=== PATIENT | male | born 1930 | race Caucasian/White ===

== ENCOUNTER 2017-11-01 12:22 | Inpatient (IN) ==
[2017-11-01] MEDS ORDERED: Aspirin 325 MG Tablet PO ONE (12:56)
--- NOTE | 2017-11-01 13:17 | ED ---
HPI General Chief complaint: Medical Clearance Stated complaint: Cardic/Pysch Eval Time Seen by Provider: 11/01/17 12:39 Source: patient, EMS and police Mode of arrival: other (police) Limitations: no limitations History of Present Illness HPI narrative: 87-year-old male the presents to the ED for evaluation of Shine act. Patient was Shine acted by police secondary to making statements to his about having "bad thoughts ". Apparently patient developed some chest pain and shortness of breath today. He told his that he was having "bad thoughts" and somehow police were involved. Patient does have a history of apparently overdosed. Per patient himself he took about 120 Xanax 6 weeks ago and was admitted to a different hospital in [facility]. He states that he was released recently and per patient he was given Xanax for his anxiety during the hospitalization but he was not released with any prescriptions for this. Per patient he believes that this is related to his symptoms. Per patient he feels pressure on his chest and short of breath. Per patient he feels somewhat similar to his panic attacks but he is not 100% sure that this is related. He states that he has no other medical problems that he takes no medications for diabetes or cholesterol. He does state that he has a history of depression. Per patient he follows with a psychiatrist. He has never been at this hospital before. He denies any cardiac history. States that his pressure is 6 out of 10. Related Data Home Medications Medication Instructions Recorded Confirmed Unable to Obtain Home Meds 11/01/17 11/01/17 Allergies Allergy/AdvReac Type Severity Reaction Status Date / Time No Allergy Information Allergy Verified 11/01/17 12:56 Available Review of Systems ROS Unobtainable All other systems reviewed negative except as stated in HPI PMFSH History History Provided By: Patient and Law Enforcement Medical History Medical History Anxiety (Acute) Depression (Acute) Suicidal ideation (Acute) Social History Social History Substance History: No History of Abuse Second Hand Smoke Exposure: No Smoking Status: Never smoker How Often Do You Have a Drink Containing Alcohol: Never Recent Travel in [place] within the Last 8 Weeks: No Recent Out of Country Travel within the Last 8 Weeks: No Exam Narrative Exam Narrative: GENERAL: Well-appearing SKIN: Focused skin assessment warm/dry. HEAD: Atraumatic. Normocephalic. EYES: Pupils equal and round. No scleral icterus. No injection or drainage. ENT: No nasal bleeding or discharge. Mucous membranes pink and moist. Tongue is midline. No uvula deviation. NECK: Trachea midline. No JVD. CARDIOVASCULAR: Regular rate and rhythm. No murmur appreciated. RESPIRATORY: No accessory muscle use. Clear to auscultation. Breath sounds equal bilaterally. GASTROINTESTINAL: Abdomen soft, non-tender, nondistended. Hepatic and splenic margins not palpable. MUSCULOSKELETAL: No obvious deformities. No clubbing. No cyanosis. No edema. Full range of motion of the upper and lower extremities bilaterally. 2+ pulses bilaterally. NEUROLOGICAL: Awake and alert. No obvious cranial nerve deficits. Motor grossly within normal limits. Normal speech. PSYCHIATRIC: Appropriate mood and affect; insight and judgment normal. Course Initial Documented Vital Signs Pulse Rate 75 11/01/17 12:40 Respiratory Rate 20 11/01/17 12:40 Blood Pressure 156/88 H 11/01/17 12:40 Pulse Oximetry 97 11/01/17 12:40 Last Documented Vital Signs Pulse Rate 77 11/01/17 17:57 Respiratory Rate 20 11/01/17 17:57 Blood Pressure 134/77 11/01/17 17:57 Pulse Oximetry 95 11/01/17 17:57 Medical Decision Making MATT Attestation MATT supervised visit: Yes Attestation: I, Dr. Bliss, have reviewed the advance practice practitioner's documentation and am in agreement, met with the patient face to face, made the diagnosis, and the medical decision making was done by me. *My assessment and Findings: Patient seen and evaluated with PA, please see PA notes for further details. Coming in with chest discomfort, has been Shine acted for psychiatric issues, fairly anxious and upset, apparently had been on benzodiazepines in the past and did not get prescription for them. At this point, patient was given some benzodiazepines as well. Initial EKG did not show any signs of acute dysrhythmias or ST changes. Lab work was fairly unremarkable otherwise. Planning to medically clear for further evaluation. [facility] Narrative Medical decision making narrative: 87-year-old male the presents to the ED for evaluation of Shine act and chest pain. Patient was properly examined and was found to have signs and symptoms of unclear etiology but likely psychiatric in nature. Cannot rule out ACS secondary to his age. Labs and imaging were ordered. Patient given aspirin and Xanax. Labs and imaging showed no sign of acute disease. Xanax did seem to help the patients symptoms. My attending Dr Reyes evaluated the patient herself. She agrees with delta troponin and if negative, patient to be medically cleared for psych eval. Differential Diagnosis Differential Diagnosis: Chest pain versus typical chest pain versus ACS versus anxiety attack versus depression versus suicidal ideation Lab Data Lab results reviewed: Yes I reviewed the patient's lab results. Lab results narrative: [facility]ags WNL troponin and [facility] WNL drug screen negative second troponin negative Result diagrams: 11/01/17 13:20 11/01/17 13:20 Lab Results 11/01/17 11/01/17 11/01/17 Range/Units 13:20 13:20 13:20 WBC 8.2 (4.0-11.0) th/mm3 RBC 4.06 L (4.50-5.90) mil/mm3 Hgb 12.8 L (13.0-17.0) gm/dL Hct 37.3 L (39.0-51.0) % MCV 92.0 (80.0-100.0) fL MCH 31.7 (27.0-34.0) pg MCHC 34.4 (32.0-36.0) % RDW 14.1 (11.6-17.2) % Plt Count 223 (150-450) th/mm3 MPV 7.8 (7.0-11.0) fL Neut % (Auto) 75.4 H (16.0-70.0) % Lymph % (Auto) 17.1 (9.0-44.0) % Garza % (Auto) 6.9 (0.0-8.0) % Eos % (Auto) 0.3 (0.0-4.0) % Baso % (Auto) 0.3 (0.0-2.0) % Neut # (Auto) 6.2 (1.8-7.7) th/mm3 Lymph # (Auto) 1.4 (1.0-4.8) th/mm3 [place] # (Auto) 0.6 (0.0-0.9) th/mm3 Eos # (Auto) 0.0 (0.0-0.4) th/mm3 Baso # (Auto) 0.0 (0.0-0.2) th/mm3 WBC Differential . Differential Comment Auto diff final PT 10.2 (9.8-11.6) sec INR 1.0 Ratio APTT 25.8 (24.3-30.1) sec Sodium 140 (136-145) meq/L Potassium 4.0 (3.5-5.1) meq/L Chloride 105 (98-107) meq/L Carbon Dioxide 27.1 (21.0-32.0) meq/L Anion Gap 8 (5-15) meq/L BUN 19 H (7-18) mg/dL Creatinine 0.85 (0.60-1.30) mg/dL Estimated GFR 85 L (>89) mL/min Random Glucose 103 (74-106) mg/dL Calcium 8.7 (8.5-10.1) mg/dL Total Bilirubin 0.5 (0.2-1.0) mg/dL AST 20 (15-37) U/L ALT 39 (12-78) U/L Alkaline Phosphatase 89 (45-117) U/L Total Creatine Kinase 55 (39-308) U/L Troponin I Less than 0.02 L (0.02-0.05) ng/mL Total Protein 7.4 (6.4-8.2) g/dL Albumin 3.4 (3.4-5.0) g/dL Urine Opiates Screen (Neg) Ur Barbiturates Screen (Neg) Ur Amphetamines Screen (Neg) U Benzodiazepines Scrn (Neg) Urine Cocaine Screen (Neg) U Cannabinoids Screen (Neg) Serum Alcohol (0-5) mg/dL 11/01/17 11/01/17 11/01/17 Range/Units 14:20 17:20 17:20 WBC (4.0-11.0) th/mm3 RBC (4.50-5.90) mil/mm3 Hgb (13.0-17.0) gm/dL Hct (39.0-51.0) % MCV (80.0-100.0) fL MCH (27.0-34.0) pg MCHC (32.0-36.0) % RDW (11.6-17.2) % Plt Count (150-450) th/mm3 MPV (7.0-11.0) fL Neut % (Auto) (16.0-70.0) % Lymph % (Auto) (9.0-44.0) % Garza % (Auto) (0.0-8.0) % Eos % (Auto) (0.0-4.0) % Baso % (Auto) (0.0-2.0) % Neut # (Auto) (1.8-7.7) th/mm3 Lymph # (Auto) (1.0-4.8) th/mm3 [place] # (Auto) (0.0-0.9) th/mm3 Eos # (Auto) (0.0-0.4) th/mm3 Baso # (Auto) (0.0-0.2) th/mm3 WBC Differential Differential Comment PT (9.8-11.6) sec INR Ratio APTT (24.3-30.1) sec Sodium (136-145) meq/L Potassium (3.5-5.1) meq/L Chloride (98-107) meq/L Carbon Dioxide (21.0-32.0) meq/L Anion Gap (5-15) meq/L BUN (7-18) mg/dL Creatinine (0.60-1.30) mg/dL Estimated GFR (>89) mL/min Random Glucose (74-106) mg/dL Calcium (8.5-10.1) mg/dL Total Bilirubin (0.2-1.0) mg/dL AST (15-37) U/L ALT (12-78) U/L Alkaline Phosphatase (45-117) U/L Total Creatine Kinase Cancelled 47 (39-308) U/L Troponin I Cancelled Less than 0.02 L (0.02-0.05) ng/mL Total Protein (6.4-8.2) g/dL Albumin (3.4-5.0) g/dL Urine Opiates Screen Neg (Neg) Ur Barbiturates Screen Neg (Neg) Ur Amphetamines Screen Neg (Neg) U Benzodiazepines Scrn Neg (Neg) Urine Cocaine Screen Neg (Neg) U Cannabinoids Screen Neg (Neg) Serum Alcohol Less than 3 (0-5) mg/dL Imaging Data Attestation: I personally reviewed and interpreted this imaging study as follows : Radiologist's impression: Chest X-Ray 11/01/17 12:56 CONCLUSION: Negative examination. Discharge Plan Discharge Disposition Patient Disposition: 30 Still Patient Discharge Details Diagnosis: Depression with suicidal ideation, Anxiety, Atypical chest pain Physicians Team ED Provider: Yvonne Bliss ED Midlevel Provider: Zacarias Hatfield Primary Care Provider: Sergio Spring Rxs /Orders / Referrals /Forms Prescriptions: No Action Unable to Obtain Home Meds RF: 0 Status ED Status: Medically Cleared
[2017-11-01 13:30] LABS: Baso % (Auto) 0.3 % (0.0-2.0); Eos % (Auto) 0.3 % (0.0-4.0); Hematocrit 37.3 % (39.0-51.0); Hemoglobin 12.8 gm/dL (13.0-17.0); Lymph # (Auto) 1.4 th/mm3 (1.0-4.8); Lymph % (Auto) 17.1 % (9.0-44.0); Mean Corpuscular HGB Conc 34.4 % (32.0-36.0); Mean Corpuscular Hemoglobin 31.7 pg (27.0-34.0); Mean Platelet Volume 7.8 fL (7.0-11.0); Mono # (Auto) 0.6 th/mm3 (0.0-0.9); Mono % (Auto) 6.9 % (0.0-8.0); Neut # (Auto) 6.2 th/mm3 (1.8-7.7); Neut % (Auto) 75.4 % (16.0-70.0); Platelet Count 223 th/mm3 (150-450); Red Blood Count 4.06 mil/mm3 (4.50-5.90); Red Cell Distribution Width 14.1 % (11.6-17.2); White Blood Count 8.2 th/mm3 (4.0-11.0)
--- NOTE | 2017-11-01 13:30 | XR ---
EXAM DATE: 11/01/2017 1:15 PM EDT AGE/SEX: 87 years / Male INDICATIONS: Chest tightness. Shortness of breath. CLINICAL DATA: This is the patient's initial encounter. Patient reports that signs and symptoms have been present for 1 day and indicates a pain score of 0/10. MEDICAL/SURGICAL HISTORY: None. None. COMPARISON: None. FINDINGS: 2 portable frontal views of the chest demonstrate the lungs to be symmetrically aerated without evide nce of mass, infiltrate or effusion. The cardiomediastinal contours are unremarkable. Osseous struc tures are intact. CONCLUSION: Negative examination. Electronically signed by: Harish Rosa MD 11/01/2017 1:29 PM EDT
[2017-11-01 13:53] LABS: Activated Partial Thrombo Time 25.8 sec (24.3-30.1); Prothrombin Time 10.2 sec (9.8-11.6)
[2017-11-01 14:02] LABS: Anion Gap 8 meq/L (5-15); Aspartate Aminotransferase 20 U/L (15-37); Blood Urea Nitrogen 19 mg/dL (7-18); Calcium 8.7 mg/dL (8.5-10.1); Carbon Dioxide 27.1 meq/L (21.0-32.0); Chloride 105 meq/L (98-107); Glomerular Filtration Rate 85 mL/min (>89); Glucose,Random 103 mg/dL (74-106); Sodium 140 meq/L (136-145)
[2017-11-01 14:03] LABS: Alanine Aminotransferase 39 U/L (12-78); Albumin 3.4 g/dL (3.4-5.0); Alkaline Phosphatase 89 U/L (45-117); Creatine Kinase 55 U/L (39-308); Total Protein 7.4 g/dL (6.4-8.2)
[2017-11-01 14:49] LABS: Amphetamine Screen,Urine Neg (Neg); Barbiturate Screen,Urine Neg (Neg); Cannabinoid Screen,Urine Neg (Neg); Cocaine Screen,Urine Neg (Neg)
[2017-11-01 14:50] LABS: Opiate Screen,Urine Neg (Neg)
--- NOTE | 2017-11-01 18:07 | ECG ---
Date Performed: 11/01/2017 Time Performed: 12:36:31 PTAGE: 87 years EKG: Sinus rhythm BORDERLINE LEFT AXIS DEVIATION RIGHT BUNDLE BRANCH BLOCK ABNORMAL ECG NO PREVIOUS TRACING DOCTOR: Abdi De La Cruz Interpretating Date/Time 11/01/2017 18:05:42
[2017-11-01 18:28] LABS: Creatine Kinase 47 U/L (39-308)
[2017-11-02] MEDS ORDERED: LORazepam 0.5 MG Tablet PO ONE (04:17)
[2017-11-02] MEDS ORDERED: Aluminum/Magnesium/Simethacone Susp 30 ML UDC PO PRN (13:33)
--- NOTE | 2017-11-02 14:57 | ED ---
HPI - Psych - General Source: patient, EMS, police Mode of arrival: other (police) Limitations: no limitations - History of Present Illness MD complaint: suicidal ideation, feels depressed Onset (ago): year(s) Duration: changing over time, getting worse History of same: Yes Relieving factors: medication Exacerbating factors: other (not having medication) Context: not taking psychiatric medications, new medication(s) Associated psychiatric symptoms: other (panic attacks) Associated symptoms: shortness of breath, nausea, other (see HPI) Treatments prior to arrival: none - General Chief Complaint: Medical Clearance Stated Complaint: Cardic/Pysch Eval Time Seen by Provider: 11/01/17 12:25 - History of Present Illness HPI Narrative: This is an 87 year-old, male who presents under a Shine Act placed by the [facility]. They were called by the patient's who advised that he has been making suicidal statements and has a recent suicide attempt by OD of xanax. This patient is previously unknown to this facility. Reviewed electronic medical record, labs, and discussed case with staff. The patient was evaluated in his room in the main ED with Yandy Chakraborty NP present. He is found awake, alert, and oriented. His speech is clear, logical, and organized. He denies suicidal and homicidal ideation as well as auditory and visual hallucinations. I can elicit no delusional material. There is no indication of internal stimulation nor thought blocking. He is neatly groomed, clad in a hospital gown, and interacts appropriately throughout the evaluation. His mood is good and his affect is euthymic. When asked why he is here, the patient responds, "these panic attacks just put me down, and they have gotten progressively worse over the years". He reports that he was treated with Xanax 0.25 mg from his PCP for years, denies having seen a psychiatrist. He moved to [place] with his at the beginning of the year. He advises that approximately six weeks ago, he took an entire bottle of Xanax and ended up on an inpatient psychiatry unit at [facility] in [place]. He was there for approximately five weeks. He was given Ativan while inpatient but was discharged without any Ativan. His reports that he received 13 ECT while at the facility and is scheduled for a 14th one this Tuesday. However, when the patient was asked, he denied any symptoms of depression previous to the admission. His and he both report that he wakes up each morning between 2 and 4 am with the following symptoms: body closing in , nausea, dizzy, hard to breathe, hot and cold sensation, sweating, and numb legs. He denies any previous suicide attempts other than the OD and the patient reports that he "can't remember why I took them". He has stated to his several times since arriving home that he wants to , but only during the time the symptoms are present. They live alone but have four adult children in the area. He walks with a walker. He denies previous psychiatric inpatient or outpatient treatment. He reports that he finished the 8th grade and worked doing auto body repair. He has been to his for 51 years. He denies smoking (quit 41 years ago), drinking alcohol, and using illicit drugs. His states that he has always been one to take less medications than to overuse them. She has since secured his medications in a locked cabinet out of an overabundance of caution. He was discharged on Celexa, Mirtazapine, and Olanzapine. He reports that last night the ER doctor prescribed him 0.5 mg po Ativan which alleviated "my symptoms by about 80%". (Violeta Borrero) - Related Data Home Medications Medication Instructions Recorded Confirmed Celexa 10 mg PO DAILY 11/02/17 11/02/17 mirtazapine [Remeron] 15 mg PO HS 11/02/17 11/02/17 olanzapine 2.5 mg PO HS 11/02/17 11/02/17 Allergies Allergy/AdvReac Type Severity Reaction Status Date / Time No Allergy Information Allergy Verified 11/01/17 12:56 Available Review of Systems All other systems reviewed negative except as stated in HPI PMF - History History Provided By: Patient, Law Enforcement - Medical History Medical History: Medical History (Last Reviewed 11/02/17 @ 14:50 by JACINDA Caicedo) Anxiety Depression Suicidal ideation - Tobacco History Second Hand Smoke Exposure: No Tobacco Use In Past 30 Days: No Smoking Status: Never smoker - Alcohol History How Often Do You Have a Drink Containing Alcohol: Never - Substance Use History Substance History: No History of Abuse - Travel History Recent Travel in the [facility] Within the Last 8 Weeks: No Recent Travel Out of the Country Within the Last 8 Weeks: No - Immunization History Tetanus Immunization: Unsure Psychiatric History - Psychiatric History Psychiatric Treatment History: History of Psychiatric Treatment, History of Electroconvulsive Therapy, History of Hospitalization in a Psychiatric Facility , Denies Previous Treatment History of Inpatient Treatment: Yes Firearms in Home: No - Psychiatric History Recent five week admission, placed on several low dose antidepressants and given 13 ECTs. Prior to that only history was Xanax from his PCP. (Violeta Borrero ) - Legal History Denies (Violeta Borrero) - Family Psychiatric History Denies (Violeta Borrero) Physical Exam - General Limitations: no limitations General appearance: alert, in no apparent distress - Head Head exam: atraumatic - Expanded Neurological Exam Eye Opening: Spontaneous Verbal Response: Oriented Motor Response: Obey commands Glascow Coma Scale Total: 15 - Psychiatric Psychiatric exam: Present: normal affect, normal mood Mental Status Examination Appearance: Appropriate, Well dressed/well groomed Consciousness: Alert Orientation: x4 Motor Activity: Other (lying on the bed) Speech: Unremarkable Language: Adequate Fund of Knowledge: Adequate Attention and Concentration: Adequate Memory: Unremarkable Mood: Appropriate, Good Affect: Appropriate, Euthymic Thought Process & Associations: Intact Thought Content: Appropriate Hallucination Type: None Delusion Type: None Suicidal Ideation: No Suicidal Plan: No Suicidal Intention: No Homicidal Ideation: No Homicidal Plan: No Homicidal Intention: No Insight: Adequate Judgment: Adequate Initial Documented Vital Signs Pulse Rate 75 11/01/17 12:40 Respiratory Rate 20 11/01/17 12:40 Blood Pressure 156/88 H 11/01/17 12:40 Pulse Oximetry 97 11/01/17 12:40 Last Documented Vital Signs Pulse Rate 77 11/02/17 08:56 Respiratory Rate 18 11/02/17 08:56 Blood Pressure 143/77 H 11/02/17 08:56 Pulse Oximetry 95 11/02/17 08:56 MDM - Psych - Diagnosis (1) Panic disorder Status: Acute - Differential Diagnosis Likely: suicidal ideation, depression, acute anxiety - Lab Data Result diagrams: 11/01/17 13:20 11/01/17 13:20 - [facility] Narrative Medical decision making narrative: Given his previous suicide attempt by overdose, and his 's report of the patient's level of distress each morning, I am admitting him to a locked inpatient psychiatric unit for further evaluation and treatment as deemed necessary. After consulting with the and Dr Hernandez, I have continued the patient on his medications and added a 0.5 mg HS dose of Ativan. Consents are signed and his will be bringing paperwork from his previous inpatient admission. (Violeta Borrero) - Lab Data Lab Results 11/01/17 11/01/17 11/01/17 Range/Units 13:20 13:20 13:20 WBC 8.2 (4.0-11.0) th/mm3 RBC 4.06 L (4.50-5.90) mil/mm3 Hgb 12.8 L (13.0-17.0) gm/dL Hct 37.3 L (39.0-51.0) % MCV 92.0 (80.0-100.0) fL MCH 31.7 (27.0-34.0) pg MCHC 34.4 (32.0-36.0) % RDW 14.1 (11.6-17.2) % Plt Count 223 (150-450) th/mm3 MPV 7.8 (7.0-11.0) fL Neut % (Auto) 75.4 H (16.0-70.0) % Lymph % (Auto) 17.1 (9.0-44.0) % [place] % (Auto) 6.9 (0.0-8.0) % Eos % (Auto) 0.3 (0.0-4.0) % Baso % (Auto) 0.3 (0.0-2.0) % Neut # (Auto) 6.2 (1.8-7.7) th/mm3 Lymph # (Auto) 1.4 (1.0-4.8) th/mm3 [place] # (Auto) 0.6 (0.0-0.9) th/mm3 Eos # (Auto) 0.0 (0.0-0.4) th/mm3 Baso # (Auto) 0.0 (0.0-0.2) th/mm3 WBC Differential . Differential Comment Auto diff final PT 10.2 (9.8-11.6) sec INR 1.0 Ratio APTT 25.8 (24.3-30.1) sec Sodium 140 (136-145) meq/L Potassium 4.0 (3.5-5.1) meq/L Chloride 105 (98-107) meq/L Carbon Dioxide 27.1 (21.0-32.0) meq/L Anion Gap 8 (5-15) meq/L BUN 19 H (7-18) mg/dL Creatinine 0.85 (0.60-1.30) mg/dL Estimated GFR 85 L (>89) mL/min Random Glucose 103 (74-106) mg/dL Calcium 8.7 (8.5-10.1) mg/dL Total Bilirubin 0.5 (0.2-1.0) mg/dL AST 20 (15-37) U/L ALT 39 (12-78) U/L Alkaline Phosphatase 89 (45-117) U/L Total Creatine Kinase 55 (39-308) U/L Troponin I Less than 0.02 L (0.02-0.05) ng/mL Total Protein 7.4 (6.4-8.2) g/dL Albumin 3.4 (3.4-5.0) g/dL Urine Opiates Screen (Neg) Ur Barbiturates Screen (Neg) Ur Amphetamines Screen (Neg) U Benzodiazepines Scrn (Neg) Urine Cocaine Screen (Neg) U Cannabinoids Screen (Neg) Serum Alcohol (0-5) mg/dL 11/01/17 11/01/17 11/01/17 Range/Units 14:20 17:20 17:20 WBC (4.0-11.0) th/mm3 RBC (4.50-5.90) mil/mm3 Hgb (13.0-17.0) gm/dL Hct (39.0-51.0) % MCV (80.0-100.0) fL MCH (27.0-34.0) pg MCHC (32.0-36.0) % RDW (11.6-17.2) % Plt Count (150-450) th/mm3 MPV (7.0-11.0) fL Neut % (Auto) (16.0-70.0) % Lymph % (Auto) (9.0-44.0) % [place] % (Auto) (0.0-8.0) % Eos % (Auto) (0.0-4.0) % Baso % (Auto) (0.0-2.0) % Neut # (Auto) (1.8-7.7) th/mm3 Lymph # (Auto) (1.0-4.8) th/mm3 [place] # (Auto) (0.0-0.9) th/mm3 Eos # (Auto) (0.0-0.4) th/mm3 Baso # (Auto) (0.0-0.2) th/mm3 WBC Differential Differential Comment PT (9.8-11.6) sec INR Ratio APTT (24.3-30.1) sec Sodium (136-145) meq/L Potassium (3.5-5.1) meq/L Chloride (98-107) meq/L Carbon Dioxide (21.0-32.0) meq/L Anion Gap (5-15) meq/L BUN (7-18) mg/dL Creatinine (0.60-1.30) mg/dL Estimated GFR (>89) mL/min Random Glucose (74-106) mg/dL Calcium (8.5-10.1) mg/dL Total Bilirubin (0.2-1.0) mg/dL AST (15-37) U/L ALT (12-78) U/L Alkaline Phosphatase (45-117) U/L Total Creatine Kinase Cancelled 47 (39-308) U/L Troponin I Cancelled Less than 0.02 L (0.02-0.05) ng/mL Total Protein (6.4-8.2) g/dL Albumin (3.4-5.0) g/dL Urine Opiates Screen Neg (Neg) Ur Barbiturates Screen Neg (Neg) Ur Amphetamines Screen Neg (Neg) U Benzodiazepines Scrn Neg (Neg) Urine Cocaine Screen Neg (Neg) U Cannabinoids Screen Neg (Neg) Serum Alcohol Less than 3 (0-5) mg/dL
[2017-11-02] MEDS ORDERED: Mirtazapine 15 MG Tablet PO SCH (21:00)
[2017-11-02] MEDS ORDERED: LORazepam 0.5 MG Tablet PO SCH (21:00)
[2017-11-02] MEDS ORDERED: OLANZapine 2.5 MG Tablet PO SCH (21:00)
[2017-11-02] MEDS ORDERED: Acetaminophen 325 MG Tablet PO PRN (22:48)
[2017-11-03 00:22] VITALS: RESP 16
[2017-11-03 06:13] VITALS: TEMP 97.7; O2SAT 95
[2017-11-03 07:27] VITALS: BP 145/78; PULSE 86
[2017-11-03 07:43] LABS: Calcium 8.4 mg/dL (8.5-10.1); Carbon Dioxide 27.8 meq/L (21.0-32.0); Potassium 3.7 meq/L (3.5-5.1)
[2017-11-03 08:08] LABS: Chol/HDL Ratio 2.11 Ratio; Thyroid Stimulating Hormone 2.2 uIU/mL (0.358-3.740)
[2017-11-03] MEDS ORDERED: Citalopram 20 MG Tablet PO SCH (09:00)
[2017-11-03 09:34] LABS: Hemoglobin A1c 5.7 % (4.3-6.0)
[2017-11-03] MEDS ORDERED: Bisacodyl 10 MG Supp RECTAL PRN (14:19)
[2017-11-03] MEDS ORDERED: Aluminum/Magnesium/Simethacone Susp 30 ML UDC PO PRN (14:19)
--- NOTE | 2017-11-03 14:26 | P.HPPSY ---
Provisional Diagnosis Admission Date: November 02, 2017 13:49 Thayer I.: Adjustment disorder with depressed mood Competence Certification of Person's Competence To Provide Express and Informed Consent I have personally examined Christofer Alvarado, a person being served at [facility] on, November 03, 2017 1423. Express and informed consent means consent voluntarily given in writing, by a competent person, after sufficient explanation and disclosure of the subject matter involved to enable the person to make a knowing and willful decision without any element of force, fraud, deceit, duress, or other form of constraint or coercion. This person is 18 years of age or older, is not now known to be incompetent to consent to treatment with a guardian advocate, and does not have a health care surrogate or proxy currently making medical treatment decisions. I have found this person to be one of the following: [xxx] Competent to provide express and informed consent, as defined above, for voluntary admission to this facility and is competent to provide express and informed consent for treatment. He/she has the consistent capacity to make well reasoned, willful, and knowing decisions concerning his or her medical or mental health treatment. The person fully and consistently understands the purpose of the admission for examination/placement and is fully capable of personally exercising all rights assured under [place] Incompetent to provide express and informed consent to voluntary admission, and this is incompetent to provide express and informed consent to treatment. The person must be transferred to involuntary status and a petition for a guardian advocate filed with the Circuit Court. [] Refusing to provide express and informed consent to voluntary admission but is competent to provide express and informed consent for treatment. The person must be discharged or transferred to involuntary status. Form shall be completed within 24 hours of a person's arrival at the receiving facility and filed in the clinical record of each person: 1. Admitted on a voluntary basis 2. Permitted to provide express and informed consent to his/her own treatment 3. Allowed to transfer from involuntary to voluntary status 4. Prior to permitting a person to consent to his or her own treatment after having been previously found incompetent to consent to treatment. History of Present Illness Capacity: Has capacity History of Present Illness: Patient is an 87-year-old white who comes here under a Shine act by the [place] police dated 11/01/2017 at 10:50 AM that document reviewed essentially states Mr. Rosa has been having episodes in which he has been waking up in the middle of the night having pain and felt like his body was caving in. He found it hard to breathe and look at his and said he was "having bad thoughts" and stated he wanted to commit suicide Ms. Rosa stated he was having thoughts of suicide but blames the feelings from not having the right else. Patient seen screen in the ED urine toxicology negative. At the present time patient sitting quietly in his room medical student Merline Mayer nurse Angela present throughout session. Patient is alert oriented calm and cooperative. States he does have a history of depression going back many years with 4-5 psychiatric hospitalizations for this though this is the first suicide attempt. Patient states he was hospitalized for 5 weeks at [facility] under Dr. Morrissey. He was treated with 13 ECT treatments then discharged on Celexa Remeron and Zyprexa. It appears she was also prescribed benzodiazepine Ativan 0.25 mg twice daily that he had been on chronically. It appears that he ran out of them and he became somewhat anxious not having his at bedtime dose leading to the above responses. At the present time patient is alert oriented calm cooperative well oriented in all 4 spheres he denies suicidality homicidality voices or visions. Lives with his for 51 years in their own home. He has 4 adult children it appears they are all retiring and they will all be moving close to each other in [place]. Patient continues to see Dr. Morrissey he has an appointment with him tomorrow morning for the maintenance ECT treatment. Patient is able contract to do no harm. His is willing to have him come home. Less I will lift the Shine act allow patient to be discharged from self the B no Rx by me he has sufficient scheduled medications at home and follow up tomorrow morning as mentioned above - Inpatient Certification I certify that the inpatient services were ordered in accordance with Medicare regulations governing the order. This includes certification that hospital inpatient services are reasonable and necessary and in the case of services not specified as inpatient-only under 42 CFR 419.22(n), that they are appropriately provided as inpatient services in accordance to with the 2-midnight benchmark under 43 CFR 412.3(e) I certify that inpatient psychiatric hospital services are medically necessary. Evaluation and treatment and/or diagnostic testing are expected to improve the patient's condition. The patient needs on a daily basis, active treatment furnished directly by or requiring the supervision of inpatient psychiatric facility personnel. Estimated Total Length of Stay (Days): 1 Plans for Post Hospital Care: Home Review of Systems All other systems reviewed negative except as stated in HPI [facility] - History History Provided By: Patient - Medical History Medical History: Medical History (Last Reviewed 11/02/17 @ 14:50 by JACINDA Caicedo) Anxiety Depression Suicidal ideation - Tobacco History Second Hand Smoke Exposure: No Tobacco Use In Past 30 Days: No Smoking Status: Former smoker Tobacco Type: Cigarettes - Alcohol History How Often Do You Have a Drink Containing Alcohol: Never - Substance Use History Substance History: No History of Abuse - Travel History Recent Travel in the [place] Within the Last 8 Weeks: No Recent Travel Out of the Country Within the Last 8 Weeks: No - Immunization History Tetanus Immunization: Unsure Quality Measures - Psychiatric History Psychological trauma history: Patient denies any physical or sexual abuse Violence risk to others in the last 6 months: Low Violence risk to self in the last 6 months: Low - Substance Abuse History Drug or alcohol use in the past 12 months: Patient denies - Patient Strengths Patient's strengths (minimum of 2): Patient verbal cooperative able access healthcare intelligent Medications and Allergies Active Medications: Active Medications Acetaminophen (Tylenol) 650 mg PO Q6H PRN PRN Reason: PAIN SCALE 1 TO 10 Last Admin: 11/02/17 23:00 Dose: 650 mg Al Hydrox/Mg Hydrox/Simethicone (Mag-Al Plus Susp Liq) 30 ml PO Q6H PRN PRN Reason: DYSPEPSIA Al Hydrox/Mg Hydrox/Simethicone (Mag-Al Plus Susp Liq) 30 ml PO Q6H PRN PRN Reason: DYSPEPSIA Al Hydroxide/Mg Hydroxide (Milk Of Magnesia Liq) 30 ml PO Q12H PRN PRN Reason: Mild Constipation Bisacodyl (Dulcolax Supp) 10 mg RECTAL DAILY PRN PRN Reason: SEVERE CONSITIPATION Citalopram Hydrobromide (Celexa) 10 mg PO DAILY [facility] Last Admin: 11/03/17 09:11 Dose: 10 mg Lactulose (Lactulose Liq) 30 ml PO DAILY PRN PRN Reason: SEVERE CONSITIPATION Mirtazapine (Remeron) 15 mg PO HS [facility] Last Admin: 11/02/17 21:20 Dose: 15 mg Miscellaneous (Pill Splitter) 1 each OTHER DAILY [facility] Last Admin: 11/03/17 09:11 Dose: 1 each Olanzapine (Zyprexa) 2.5 mg PO [facility] Last Admin: 11/02/17 21:20 Dose: 2.5 mg Senna/Docusate Sodium (Britany-Colace) 1 tab PO BID [facility] Sennosides (Senokot) 17.2 mg PO Q12H PRN PRN Reason: Moderate Constipation Sodium Chloride (Ns Flush) 2 ml IV.FLUSH UNSCH PRN PRN Reason: FLUSH AFTER USING IV ACCESS Allergies Allergy/AdvReac Type Severity Reaction Status Date / Time No Allergy Information Allergy Verified 11/01/17 12:56 Available Home Medications Medication Instructions Recorded Confirmed Type Celexa 10 mg PO DAILY 11/02/17 11/02/17 History mirtazapine [Remeron] 15 mg PO 11/02/17 11/02/17 History olanzapine 2.5 mg PO 11/02/17 11/02/17 History Results - Labs CBC & Chem 7: 11/01/17 13:20 11/03/17 05:37 Labs: Laboratory Results - last 24 hr 11/03/17 11/03/17 05:37 05:37 Sodium 142 Potassium 3.7 Chloride 107 Carbon Dioxide 27.8 Anion Gap 7 BUN 23 H Creatinine 0.91 Estimated GFR 78 L Random Glucose 101 Hemoglobin A1c 5.7 Calcium 8.4 L Triglycerides 71 Cholesterol 131 LDL Cholesterol, Calc 55 HDL Cholesterol 62.0 H Cholesterol/HDL Ratio 2.11 Vitamin B12 966 Vitamin D 25-Hydroxy 30.8 TSH 2.200 Exam Vital signs: Vital Signs 11/03/17 00:00 11/03/17 06:12 11/03/17 06:13 Temperature 97.7 F 97.7 F Pulse Rate 81 81 Respiratory Rate 16 16 16 Blood Pressure 179/89 H 179/89 H Pulse Oximetry 95 95 11/03/17 06:14 11/03/17 07:26 Temperature 97.7 F Pulse Rate 81 86 Respiratory Rate 16 Blood Pressure 179/89 H 145/78 H Pulse Oximetry 95 Intake & Output 11/02/17 11/03/17 11/03/17 18:59 06:59 18:59 Intake Total 840 / 840 Output Total 1300 / 1300 Balance -1300 / -1300 840 / 840 Weight 65.8 kg Intake: Oral 840 / 840 Output: Urine 1300 / 1300 Other: Weight On Admission 65.8 kg Narrative: Patient seen in his room with staff as mentioned above he is in no acute distress, patient in no respiratory distress no complaints of chest pain no complaints of abdominal pain patient using a walker to walk there is somewhat of a shuffle in his work floor is moving all 4 extremities without difficulty Mental Status Examination Appearance: Appropriate, Well dressed/well groomed Consciousness: Alert Orientation: x4 Motor Activity: Other (lying on the bed) Speech: Unremarkable Language: Adequate Fund of Knowledge: Adequate Attention and Concentration: Adequate Memory: Unremarkable Mood: Good, Other Affect: Other (Good range and intensity) Thought Process & Associations: Intact Thought Content: Appropriate Hallucination Type: None Delusion Type: None Suicidal Ideation: No Suicidal Plan: No Suicidal Intention: No Homicidal Ideation: No Homicidal Plan: No Homicidal Intention: No Insight: Adequate Judgment: Adequate Assessment and Plan - Assessment (1) Adjustment disorder with depressed mood Code(s): F43.21 - Adjustment disorder with depressed mood Status: Acute - Plan Plan: Estimated LOS: [1] days Patient does not meet Shine criteria lift Shine act patient be discharged from self with no Rx by me, patient denies suicidality homicidality voice or visions is able contract to do no harm. He may continue his own scheduled medications. He should keep his appointment with Dr. Morrissey tomorrow for continued maintenance ECT Justification for Continued Inpatient Stay: Patient to be discharged today to his Discharge Planning: Patient to be discharged to his today, follow-up Dr. Morrissey tomorrow morning Request Healthcare Surrogate/Guardian Advocate?: No
--- NOTE | 2017-11-03 14:43 | P.DSPSY ---
Psychiatry Discharge Summary Inpatient Psychiatric care?: Yes Advance Directives: No Reason for Unknown:: Other Mental Health Advance Directive: No Health Care Proxy: No - Admission Admission Date: November 02, 2017 13:49 - Admission Diagnosis (1) Depression with suicidal ideation Code(s): F32.9 - Major depressive disorder, single episode, unspecified; R45.851 - Suicidal ideations Brief History: Patient is an 87-year-old white who comes here under a Shine act by the [place] police dated 11/01/2017 at 10:50 AM that document reviewed essentially states Mr. Rosa has been having episodes in which he has been waking up in the middle of the night having pain and felt like his body was caving in. He found it hard to breathe and look at his and said he was "having bad thoughts" and stated he wanted to commit suicide Ms. Rosa stated he was having thoughts of suicide but blames the feelings from not having the right else. Patient seen screen in the ED urine toxicology negative. At the present time patient sitting quietly in his room medical student Merline Miller present throughout session. Patient is alert oriented calm and cooperative. States he does have a history of depression going back many years with 4-5 psychiatric hospitalizations for this though this is the first suicide attempt. Patient states he was hospitalized for 5 weeks at [facility] under Dr. Morrissey. He was treated with 13 ECT treatments then discharged on Celexa Remeron and Zyprexa. It appears she was also prescribed benzodiazepine Ativan 0.25 mg twice daily that he had been on chronically. It appears that he ran out of them and he became somewhat anxious not having his at bedtime dose leading to the above responses. At the present time patient is alert oriented calm cooperative well oriented in all 4 spheres he denies suicidality homicidality voices or visions. Lives with his for 51 years in their own home. He has 4 adult children it appears they are all retiring and they will all be moving close to each other in [place]. Patient continues to see Dr. Morrissey he has an appointment with him tomorrow morning for the maintenance ECT treatment. Patient is able contract to do no harm. His is willing to have him come home. Less I will lift the Shine act allow patient to be discharged from self the B no Rx by me he has sufficient scheduled medications at home and follow up tomorrow morning as mentioned above Tobacco Use In Past 30 Days: No How Often Do You Have a Drink Containing Alcohol: Never Hospital Course: Please see above dictation under brief history. Patient does not meet Shine criteria thus patient to be discharged today to himself with no Rx by me, may continue his own scheduled prescribed medications. Patient to follow-up with Dr. Morrissey tomorrow morning for maintenance ECT - Discharge Discharge Date: 11/03/17 - Discharge Diagnosis (1) Adjustment disorder with depressed mood Code(s): F43.21 - Adjustment disorder with depressed mood Status: Acute Discharge Disposition: Home - Discharge Instructions Discharge Diet: Regular Diet Activities You Can Perform: Regular- No Restrictions Appointment Date: 11/04/17 (Follow-up Dr. Morrissey for maintenance ECT) - Discharge Time > 30 minutes Mental Status Examination Appearance: Appropriate, Well dressed/well groomed Consciousness: Alert Orientation: x4 Motor Activity: Other (lying on the bed) Speech: Unremarkable Language: Adequate Fund of Knowledge: Adequate Attention and Concentration: Adequate Memory: Unremarkable Mood: Good, Other Affect: Other (Good range and intensity) Thought Process & Associations: Intact Thought Content: Appropriate Hallucination Type: None Delusion Type: None Suicidal Ideation: No Suicidal Plan: No Suicidal Intention: No Homicidal Ideation: No Homicidal Plan: No Homicidal Intention: No Insight: Adequate Judgment: Adequate Discharge/Advance Care Plan - Results Vital Signs: Last Vital Signs Temp 97.7 F 11/03/17 06:14 Pulse 86 11/03/17 07:26 Resp 16 11/03/17 06:14 BP 145/78 H 11/03/17 07:26 Pulse Ox 95 11/03/17 06:14 Lab Results: Abnormal Lab Results 11/03/17 11/03/17 05:37 05:37 Sodium 142 Potassium 3.7 Chloride 107 Carbon Dioxide 27.8 Anion Gap 7 BUN 23 H Creatinine 0.91 Estimated GFR 78 L Random Glucose 101 Hemoglobin A1c 5.7 Calcium 8.4 L Triglycerides 71 Cholesterol 131 LDL Cholesterol, Calc 55 HDL Cholesterol 62.0 H Cholesterol/HDL Ratio 2.11 Vitamin B12 966 Vitamin D 25-Hydroxy 30.8 TSH 2.200 Laboratory Results Hemoglobin A1c 5.7 % (4.3-6.0) 11/03/17 05:37 Triglycerides 71 mg/dL (42-150) 11/03/17 05:37 Cholesterol 131 mg/dL (120-200) 11/03/17 05:37 LDL Cholesterol, Calc 55 mg/dL (0-99) 11/03/17 05:37 HDL Cholesterol 62.0 mg/dL (40.0-60.0) H 11/03/17 05:37 TSH 2.200 uIU/mL (0.358-3.740) 11/03/17 05:37 Summary of Procedures: None done Imaging: ITS Impressions Chest X-Ray 11/01/17 12:56 CONCLUSION: Negative examination. Pending Results: None - Medications Number of antipsychotic medications at discharge: 0 - Discharge Care Plan Goals to Promote Your Health: * To prevent worsening of your condition and complications * To maintain your health at the optimal level Directions to Meet Your Goals: Take your medications as prescribed Follow your dietary instruction Follow activity as directed Keep your appointments as scheduled Take your immunizations and boosters as scheduled If your symptoms worsen call your PCP, if no PCP go to Urgent Care Center or Emergency Room For 01/11 questions related to your inpatient stay or results of tests pending at discharge, please contact Dr. Torito Hernandez MD at Smoking is Dangerous to Your Health. Avoid second hand smoking
[2017-11-03] MEDS ORDERED: Senna/Docusate Sodium 8.6/50 MG Tablet PO SCH (21:00)
== END 2017-11-03 18:00 | disposition home or self-care (01) ==
LOC: NEPE 12:22 → NEDA 11-02 13:49 → H260 11-02 15:00
PROVIDERS: ADMIT Psychiatry & Neurology Psychiatry; ATTEND Psychiatry & Neurology Psychiatry